=== PATIENT | male | born 1995 | race Caucasian/White ===

== ENCOUNTER 2022-12-17 13:52 | Emergency (ER) | payer SELFPAY ==
[2022-12-17 14:22] VITALS: BP 149/86; PULSE 63; RESP 18; TEMP 98; BMI 23.2
[2022-12-17] MEDS ORDERED: IBUPROFEN 600 MG TABLET (FP) PO ONE ×2 (16:10→16:21)
== END 2022-12-17 16:58 | disposition home or self-care (01) ==
LOC: JERFT 13:52
DX: S62.626A Displaced fracture of middle phalanx of right little finger, initial encounter for closed fracture (principal); Y93.67 Activity, basketball
CPT/HCPCS: 73140-TC-RT-FY; 99283-25